=== PATIENT | male | born 1990 | race Hispanic/Latino ===

== ENCOUNTER 2020-09-05 15:05 | Emergency (ER) | payer BC ==
[~2020-09-05] VITALS: Ht 172.7 cm; Wt 103.0 kg
[~2020-09-05 15:05] MED LIST: OFLOXACIN10 ML AD
[2020-09-05] MEDS ORDERED: PREDNISONE20 MG PO (20:18)
== END 2020-09-05 20:50 | disposition home or self-care (01) ==
LOC: ED 15:05
DX: U07.1 COVID-19 (principal); R21 Rash and other nonspecific skin eruption
CPT/HCPCS: 36415; 80053; 80500; 82607; 82746; 84443; 85025; 85610; 85651; 85730; 86038; 86140; 99283; C9803; U0003

== ENCOUNTER 2023-01-27 19:22 | Emergency (ER) | payer OTHER, BC ==
[~2023-01-27] VITALS: Ht 172.7 cm; Wt 109.2 kg
[~2023-01-27 19:22] MED LIST changes: +PREDNISONE20 MG PO
[2023-01-27] MEDS ORDERED: SINGULAIR10 MG PO (19:34)
[2023-01-27 21:31] VITALS: BP 129/87
== END 2023-01-27 21:32 | disposition home or self-care (01) ==
LOC: ED 19:22
DX: S05.11XA Contusion of eyeball and orbital tissues, right eye, initial encounter (principal); H11.31 Conjunctival hemorrhage, right eye; Y04.0XXA Assault by unarmed brawl or fight, initial encounter; Z79.899 Other long term (current) drug therapy
CPT/HCPCS: 70486

== ENCOUNTER 2023-06-18 17:17 | Emergency (ER) | payer BC ==
[~2023-06-18] VITALS: Ht 170.2 cm; Wt 90.9 kg
[~2023-06-18 17:17] MED LIST changes: +SINGULAIR10 MG PO
[2023-06-18] MEDS ORDERED: BACTRIM DS TAB1 EACH PO (18:48)
[2023-06-18] MEDS ORDERED: CENTANY30 GM TOP (18:48)
[2023-06-18 19:28] VITALS: BP 112/64
== END 2023-06-18 19:27 | disposition home or self-care (01) ==
LOC: ED 17:17
DX: J34.0 Abscess, furuncle and carbuncle of nose (principal)
CPT/HCPCS: 99283; A9270